=== PATIENT | female | born 1990 | race Caucasian/White ===

== ENCOUNTER 2018-09-15 05:16 | Emergency (ER) | payer SELFPAY ==
[~2018-09-15] VITALS: Ht 152.4 cm; Wt 58.5 kg
[2018-09-15 05:19] VITALS: BP 116/61
--- NOTE | 2018-09-15 05:19 | NUR ---
PT AMBULATED TO ER BED 8
[2018-09-15] MEDS ORDERED: IBUPROFEN 800 MG TAB PO ONE (05:30)
[2018-09-15] MEDS ORDERED: CYCLOBENZAPRINE 10 MG TAB PO ONE (05:30)
--- NOTE | 2018-09-15 05:31 | NUR ---
PT TO ED WITH C/O NECK PAIN X 1 HR. PER PT "I TUNRED MY NECK WAY TOO FAST AND IT HURTS NOW" PT HAS LIMITED ROM OF NECK. DENIES INJURY OR TRAUMA. NO OBVIOUS INJURY NOTED. TP PLACED INTO BED, PENDING MD SCHMID.
--- NOTE | 2018-09-15 06:00 | NUR ---
PT REPORTS RELIEF OF SYMPTOMS POST MEDICATION ADMINISTRATION AND HEAT PACK APPLICATION. ER AWARE.
[2018-09-15 06:16] VITALS: BP 116/61
--- NOTE | 2018-09-15 06:17 | NUR ---
Patient discharged with v/s stable. Written and verbal after care instructions given and explained. Patient alert, oriented and verbalized understanding of instructions. Ambulatory with steady gait. All questions addressed prior to discharge. ID band removed. Patient advised to follow up with PMD. Rx of FLEXIRIL, MOTRIN given. Patient educated on indication of medication including possible reaction and side effects. Opportunity to ask questions provided and answered.
== END 2018-09-15 06:17 | disposition home or self-care (01) ==
LOC: MED 05:16
DX: S16.1XXA Strain of muscle, fascia and tendon at neck level, initial encounter (principal); X58.XXXA Exposure to other specified factors, initial encounter; Y93.89 Activity, other specified; Y92.89 Other specified places as the place of occurrence of the external cause; Y99.8 Other external cause status
CPT/HCPCS: 99283